=== PATIENT | female | born 1970 | race Caucasian/White ===

== ENCOUNTER 2019-03-20 19:54 | Emergency (ER) | payer MEDICAID ==
[~2019-03-20] VITALS: Ht 170.2 cm; Wt 95.3 kg
[2019-03-20 20:48] VITALS: BP_SYST 124
--- NOTE | 2019-03-21 00:25 | NUR ---
Patient to ER bed Hi 1 to gown for evaluation. Side rails up.
--- NOTE | 2019-03-21 00:26 | NUR ---
Dr. Austin bedside for Pt eval
--- NOTE | 2019-03-21 00:31 | NUR ---
Pt BIB self to ED needing medication refill. The patient reports she ran out of her 350mg Wellbutrin XL ~4 months ago. She states he has been feeling depressed shortly after being off Wellbutrin because her therapist left. Per patient, she has decreased appetite, excessive sleepiness, loss of pleasure of day-to-day activity, and feeling blue. 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
[2019-03-21 00:45] VITALS: BP_SYST 124
--- NOTE | 2019-03-21 00:45 | NUR ---
Patient given written and verbal discharge instructions and verbalizes understanding. ER MD discussed with patient the results and treatment provided. Patient in stable condition. ID arm band removed. Rx of Wellbutrin XL given. Patient educated on pain management and to follow up with PMD. Pain Scale 0/10 Opportunity for questions provided and answered. Medication side effect fact sheet provided.
== END 2019-03-21 00:45 | disposition home or self-care (01) ==
LOC: SED 19:54
DX: F32.9 Major depressive disorder, single episode, unspecified (principal); F41.9 Anxiety disorder, unspecified; Z88.0 Allergy status to penicillin
CPT/HCPCS: 99283; J7030

== ENCOUNTER 2019-03-23 15:56 | Emergency (ER) | payer MEDICAID ==
[~2019-03-23] VITALS: Ht 170.2 cm; Wt 95.3 kg
[2019-03-23 16:07] VITALS: BP_SYST 123
--- NOTE | 2019-03-23 16:09 | NUR ---
Patient to ER bed 07 to gown for evaluation. Side rails up.
--- NOTE | 2019-03-23 16:40 | NUR ---
PATIENT PRESENTS TO THE ER WITH HX OF LEFT FLANK PAIN FOR TWO DAYS WITH DIARRHEA; PATIENT TO ER #[id number] AT 1630, ERMD EVALUATION AT 1641
[2019-03-23 16:41] LABS: BASOPHILS # (AUTO) 0.1 K/uL (0.0-0.2); BASOPHILS % (AUTO) 0.7 % (0.0-2.0); EOSINOPHILS # (AUTO) 0.2 K/uL (0.0-0.4); EOSINOPHILS % (AUTO) 1.4 % (0.0-4.0); HEMATOCRIT 42.9 % (36-48); LYMPHOCYTES # (AUTO) 2.3 K/uL (1.0-5.5); LYMPHOCYTES % (AUTO) 19.9 % (20.5-51.5); MEAN CORPUSCULAR HEMOGLOBIN 27 pg (27-31); MEAN CORPUSCULAR HGB CONC 33 % (32-36); MEAN CORPUSCULAR VOLUME 82 fL (79.0-98.0); MONOCYTES # (AUTO) 0.6 K/uL (0.0-1.0); MONOCYTES % (AUTO) 5.1 % (1.7-9.3); NEUTROPHILS # (AUTO) 8.5 K/uL (1.8-7.7); NEUTROPHILS % (AUTO) 72.9 % (40.0-70.0); PLATELET COUNT (AUTO) 258 K/uL (130-430); RED BLOOD CELL COUNT(AUTO) 5.24 MIL/uL (4.2-6.2); RED CELL DISTRIBUTION WIDTH 13.3 % (9.0-15.0); WHITE BLOOD COUNT (AUTO) 11.6 K/uL (4.8-10.8)
--- NOTE | 2019-03-23 16:42 | NUR ---
PATIENT IS ON [employer]
[2019-03-23 16:45] LABS: CALCIUM 8.6 mg/dL (8.4-11.0); CREATININE 0.65 mg/dL (0.55-1.30); POTASSIUM 3.7 mmol/L (3.5-5.1)
[2019-03-23 16:50] LABS: PROTHROMBIN TIME 9.8 SECS (9.5-12.5)
[2019-03-23 16:51] LABS: ALBUMIN 3.9 g/dL (3.4-4.8); TOTAL BILIRUBIN 0.4 mg/dL (0.0-1.0)
[2019-03-23] MEDS ORDERED: KETOROLAC TROMETHAMINE 60 MG/2 ML VIAL IM ONE (17:00)
--- NOTE | 2019-03-23 17:02 | NUR ---
BREATH SOUNDS SHOW WHEEZING BILATERALLY PRIOR TO COUGH; CLEAR FOLLOWING
--- NOTE | 2019-03-23 18:36 | NUR ---
PATIENT STATES MARKED IMPROVEMENT IN SYMPTOMS; DISPOSITION PENDING
[2019-03-23 19:26] VITALS: BP_SYST 111
--- NOTE | 2019-03-23 19:28 | NUR ---
REASSESSMENT BY ERMD; ACI GIVEN AND PATIENT INDICATED FULL UNDERSTANDING; DISCHARGED AMBULATORY WITH MARKED IMPROVEMENT
== END 2019-03-23 19:26 | disposition home or self-care (01) ==
LOC: SED 15:56
DX: R10.9 Unspecified abdominal pain (principal); M54.9 Dorsalgia, unspecified
CPT/HCPCS: 36415; 74176; 80053; 81025; 82150; 83690; 84703; 85025; 85610; 85730; 96372; 99284; J1885

== ENCOUNTER 2022-11-25 07:09 | Emergency (ER) | payer MEDICAID, OTHER ==
[~2022-11-25] VITALS: Ht 170.2 cm; Wt 92.1 kg
[2022-11-25 07:10] VITALS: BP_SYST 98; PULSE 96; RESP 18; TEMP 97.1; O2SAT 98
[2022-11-25 07:52] LABS: BASOPHILS # (AUTO) 0.1 K/uL (0.0-0.2); BASOPHILS % (AUTO) 0.8 % (0.0-2.0); EOSINOPHILS # (AUTO) 0.1 K/uL (0.0-0.4); EOSINOPHILS % (AUTO) 0.8 % (0.0-4.0); HEMATOCRIT 41.8 % (36-48); HEMOGLOBIN 13.7 g/dL (12.0-16.0); LYMPHOCYTES # (AUTO) 2.3 K/uL (1.0-5.5); LYMPHOCYTES % (AUTO) 26.9 % (20.5-51.5); MEAN CORPUSCULAR HEMOGLOBIN 26 pg (27-31); MEAN CORPUSCULAR HGB CONC 33 % (32-36); MEAN CORPUSCULAR VOLUME 79 fL (79.0-98.0); MONOCYTES % (AUTO) 11.3 % (1.7-9.3); NEUTROPHILS # (AUTO) 5.1 K/uL (1.8-7.7); NEUTROPHILS % (AUTO) 60.2 % (40.0-70.0); PLATELET COUNT (AUTO) 245 K/uL (130-430); RED BLOOD CELL COUNT(AUTO) 5.32 MIL/uL (4.2-6.2); WHITE BLOOD COUNT (AUTO) 8.4 K/uL (4.8-10.8)
[2022-11-25] MEDS ORDERED: ACETAMINOPHEN 500 MG TABLET PO ONE (08:00)
[2022-11-25 08:04] LABS: CREATININE 0.84 mg/dL (0.55-1.30); POTASSIUM 3.4 mmol/L (3.5-5.1)
[2022-11-25 08:07] LABS: INFLUENZA TYPE A negative (NEGATIVE); INFLUENZA TYPE B NEGATIVE (NEGATIVE)
[2022-11-25 08:17] LABS: ALBUMIN 3.3 g/dL (3.4-4.8); THYROID STIMULATING HORMONE 1.15 uIu/mL (0.34-4.82); TOTAL BILIRUBIN 0.5 mg/dL (0.0-1.0); TOTAL PROTEIN, SERUM 7.3 g/dL (6.4-8.3)
[2022-11-25] MEDS ORDERED: POTASSIUM CHLORIDE 20 MEQ/PKT PACKET PO ONE (08:30)
[2022-11-25 08:33] LABS: BILIRUBIN,URINE NEGATIVE (NEGATIVE); CLARITY/URINE Clear (CLEAR); COLOR,URINE YELLOW (YELLOW); GLUCOSE,URINE NEGATIVE (NEGATIVE); LEUKOCYTE ESTERASE ,URINE 1+ (NEGATIVE); NITRITE, URINE NEGATIVE (NEGATIVE); PH,URINE 6.5 (5.0-8.0); PROTEIN URINE NEGATIVE (NEGATIVE); UROBILINOGEN,URINE 0.2 (0.2-1.0)
[2022-11-25 08:36] LABS: BLOOD, URINE TRACE (NEGATIVE); KETONES,URINE TRACE (NEGATIVE)
[2022-11-25 08:49] LABS: BACTERIA,URINE FEW /HPF (None Seen)
[2022-11-25] MEDS ORDERED: CIPROFLOXACIN LACT 400 MG/D5W 200 ML IV ONE (09:00)
[2022-11-25] MEDS ORDERED: NACL 0.9% 1,000 ML IV ONE (09:00)
[2022-11-25] MEDS ORDERED: ACET325T PO (11:53)
[2022-11-25] MEDS ORDERED: CIPR500T5 PO (11:53)
[2022-11-25 12:06] VITALS: BP_SYST 98; PULSE 96; RESP 18; TEMP 97.1; O2SAT 98
== END 2022-11-25 12:06 | disposition home or self-care (01) ==
LOC: SED 07:09
DX: N39.0 Urinary tract infection, site not specified (principal); E87.6 Hypokalemia; R53.83 Other fatigue; R50.9 Fever, unspecified; M79.10 Myalgia, unspecified site; K21.9 Gastro-esophageal reflux disease without esophagitis; F17.200 Nicotine dependence, unspecified, uncomplicated; Z88.0 Allergy status to penicillin; Z79.899 Other long term (current) drug therapy; Z20.822 Contact with and (suspected) exposure to COVID-19
CPT/HCPCS: 99285; 96365; 70450; 71045; 87426; 80053; 84439; 84443; 85025; 87040; 87086; 36415; 76376; 83605; 81003; 87804 ×2; 81000; J0744; J7030

== ENCOUNTER 2023-02-26 16:55 | Emergency (ER) | payer MEDICAID ==
[~2023-02-26] VITALS: Ht 170.2 cm; Wt 95.3 kg
[~2023-02-26 16:55] MED LIST: ACET325T PO; CIPR500T5 PO
[2023-02-26 17:23] VITALS: BP_SYST 116; PULSE 95; RESP 18; TEMP 98.3; O2SAT 98
[2023-02-26] MEDS ORDERED: KETOROLAC TROMETHAMINE 60 MG/2 ML VIAL IM ONE (17:45)
[2023-02-26] MEDS ORDERED: IBUP-1969 PO (18:43)
[2023-02-26 19:11] VITALS: BP_SYST 103; PULSE 94; RESP 18; TEMP 98.3; O2SAT 98
== END 2023-02-26 19:11 | disposition home or self-care (01) ==
LOC: SED 16:55
DX: S16.1XXA Strain of muscle, fascia and tendon at neck level, initial encounter (principal); S89.91XA Unspecified injury of right lower leg, initial encounter; S49.92XA Unspecified injury of left shoulder and upper arm, initial encounter; E04.1 Nontoxic single thyroid nodule; F41.9 Anxiety disorder, unspecified; F31.9 Bipolar disorder, unspecified; Z79.899 Other long term (current) drug therapy; Z88.0 Allergy status to penicillin; W18.39XA Other fall on same level, initial encounter; Y93.89 Activity, other specified; Y92.89 Other specified places as the place of occurrence of the external cause; Y99.8 Other external cause status
CPT/HCPCS: 99285; 72125; 73030; 73060; 73564; 76376; 96372; J1885